=== PATIENT | female | born 1970 | race African-American/Black ===

== ENCOUNTER 2021-01-04 23:35 | Emergency (ER) | payer OTHER ==
[~2021-01-04] VITALS: Ht 152.4 cm; Wt 82.0 kg
[2021-01-05] MEDS ORDERED: IBUPROFEN 400MG TABLET PO SCH (04:30)
[2021-01-05] MEDS ORDERED: ACETAMINOPHEN 325MG TABLET PO SCH (04:30)
[2021-01-05 05:00] VITALS: BP 155/85
[2021-01-05] MEDS ORDERED: NAPR-1176 MT (05:00)
[2021-01-05] MEDS ORDERED: TOPUD MT (05:00)
== END 2021-01-05 05:10 | disposition home or self-care (01) ==
LOC: ER 23:35
DX: G89.29 Other chronic pain (principal); M25.561 Pain in right knee; Z90.49 Acquired absence of other specified parts of digestive tract; Z98.51 Tubal ligation status; Z88.6 Allergy status to analgesic agent
CPT/HCPCS: 73562; 81025; 99283